=== PATIENT | female | born 1995 | race Caucasian/White ===

== ENCOUNTER 2018-12-01 18:37 | Emergency (ER) | payer OTHER ==
[2018-12-01] MEDS: LIDOCAINE 4% CR TOP (23:52)
[2018-12-01] MEDS: LIDOCAINE 1% (MPF) 5 ML VIAL INJ (23:52)
[2018-12-02] MEDS: LIDOCAINE 1% (MPF) 5 ML VIAL INJ (01:09)
[2018-12-02] MEDS: IBUPROFEN 200 MG TAB PO (02:18)
== END 2018-12-02 02:25 | disposition home or self-care (01) ==
LOC: FTE 12-02 02:25
DX: N75.0 Cyst of Bartholin's gland (principal); L08.9 Local infection of the skin and subcutaneous tissue, unspecified; F17.210 Nicotine dependence, cigarettes, uncomplicated
CPT/HCPCS: 56420; 81025; 99284-25